=== PATIENT | male | born 1990 | race Caucasian/White ===

== ENCOUNTER 2016-10-26 11:36 | Day surgery (SDC) | payer SELFPAY ==
[~2016-10-26] VITALS: Ht 167.6 cm; Wt 60.9 kg
--- NOTE | ~2016-10-26 | HP ---
PATIENT'S NAME: EVELINA JORDAN [facility] AGE: 26 Y [address] ROOM: [place] [address] LOCATION: [facility] ADMIT DATE: 10/26/2016 History & Physical DISCHARGE DATE: FAMILY PHYSICIAN: PHYSICIAN, NO ATTENDING PHYSICIAN: Karri Merchant DATE OF SERVICE: CHIEF COMPLAINT: Left index finger injury. HISTORY: The patient is a 26-year-old male whom we are seeing in the ER following an injury to the left hand. He states earlier today he was changing a tire with a friend when the finger got caught and pinched. He had immediate abnormality. He was seen for evaluation in the local urgent care. They sent him to [facility] Emergency Room. On evaluation today, he has an obvious laceration to the ulnar aspect of his index finger. This was evaluated in the emergency room, and Orthopedics was consulted. He denies any other injury. He denies numbness or tingling. He denies any other concerns or complaints. SIGNIFICANT MEDICAL HISTORY: Positive only for asthma as a child. He is not currently under any treatment for this. MEDICATIONS: He does not currently take any medications. ALLERGIES: HE HAS NO KNOWN DRUG ALLERGIES. REVIEW OF SYSTEMS: All negative except for that mentioned above. PHYSICAL EXAMINATION: GENERAL: The patient is alert and oriented on exam. He is not in any apparent distress. MENTAL STATUS: He is alert and oriented to person, place, and time. HEENT: Hearing is grossly intact with no audible deformities. RESPIRATORY: Rate is regular. There is no audible wheezing on auscultation. There are no crackles or wheezes. CIRCULATORY: Radial pulses are 2+ bilaterally. He has brisk cap refill at the index finger of the second digit of his left hand. HEART: Regular rate and rhythm on auscultation. ABDOMEN: Soft, tender, and nondistended. Active bowel sounds x4. PATIENT'S NAME: EVELINA JORDAN [facility] AGE: 26 Y [address] ROOM: [address] [address] LOCATION: [facility] ADMIT DATE: 10/26/2016 History & Physical DISCHARGE DATE: FAMILY PHYSICIAN: PHYSICIAN, NO ATTENDING PHYSICIAN: Karri Merchant MUSCULOSKELETAL: Exam of the left upper extremity reveals an obvious laceration at the ulnar aspect of the index finger overlying the PIP joint. Probing of the wound does demonstrate the presence of the joint capsule. No obvious fracture. He is able to flex and extend the digit without difficulty revealing intact tendon function. There is no diminished sensation at the tip of the finger revealing intact neurovascular status. There is no tenderness throughout the remaining digits. No tenderness proximally. He is able to flex and extend all digits without difficulty. He has full range of motion of the wrist, elbow, and shoulder without difficulty. Motor strength is 5/5 in all major muscle groups. Exam of the right upper extremity and bilateral lower extremities reveal no tenderness to palpation throughout. He has full pain-free range of motion to all major joints. Motor strength is 5/5 in all major muscle groups. Sensation is grossly intact throughout. RADIOGRAPHIC INTERPRETATION: Review of x-rays taken in the ER revealed no fracture or dislocation. IMPRESSION: Left hand index finger laceration with open PIP joint. RECOMMENDATIONS,: Dr. Merchant and I evaluated the patient and formulated the following treatment plan. At this point given the open nature of the PIP joint, recommendation is made for I and D at the joint with closure. The procedure was explained in detail. The risks, benefits, and complications were discussed. The patient understands these. While in the emergency room, he will get a tetanus booster as well as Ancef 2 g. Postoperatively, we will place him on antibiotics as well. He understands and agrees with this treatment plan, and he does wish to proceed as soon as possible. We will take him to the OR on an emergent basis. OLMAN RICE FOR KARRI MERCHANT MD SB/modl /[id number] D: 030 T: [id number] HISTORY & PHYSICAL
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
[2016-10-26] MEDS ORDERED: NORCO 5-325 TA1 EACH PO (14:46)
[2016-10-26] MEDS ORDERED: "\\\"PREP SPRAY\\\"-TIN4 OZ" (14:46)
[2016-10-26] MEDS ORDERED: LEVAQUIN500 MG PO (14:46)
== END 2016-10-26 15:05 | disposition disaster alternative care site (69) ==
LOC: GACC 11:36 → G3N 12:50 → GACC 12:50 → GSDC 12:50
PROC: 0HQGXZZ Repair Left Hand Skin, External Approach (ICD-10-PCS; principal; 2016-10-26)
DX: S61.211A Laceration without foreign body of left index finger without damage to nail, initial encounter (principal); J45.909 Unspecified asthma, uncomplicated; W23.0XXA Caught, crushed, jammed, or pinched between moving objects, initial encounter
CPT/HCPCS: J0690; J7120